=== PATIENT | female | born 2000 | race Two or more races ===

== ENCOUNTER 2025-08-29 23:06 | Emergency (ER) | payer SELFPAY ==
[~2025-08-29] VITALS: Ht 170.2 cm; Wt 59.0 kg
[2025-08-29 23:16] VITALS: BP 120/84; PULSE 130; RESP 17; O2SAT 98
== END 2025-08-29 23:32 | disposition left against medical advice (07) ==
LOC: EDBD 23:06 → ER 23:06
DX: F10.10 Alcohol abuse, uncomplicated (principal); Z79.899 Other long term (current) drug therapy